=== PATIENT | female | born 1935 | race Caucasian/White ===

== ENCOUNTER → 2016-09-21 | Outpatient (CLI) | payer MEDICARE, OTHER ==
[~2016-09-21] MED LIST: ALPR0.5T8 PO; ASPI81TA84 PO; ATOR10TA64 PO; CALC600T12 PO; CHOL100018 PO; LACT1CAP58 PO; LEVO50TA4 PO; LISI1TAB11 PO; LUTE10TA2 PO; METO25TA27 PO; MULT-933 PO; OMEP40CA11 PO; ONDA4TAB7 PO; [UNRECOGNIZED DRUG - OTHER] PO
== END ==
LOC: WC.BC 11:05
DX: Z12.31 Encounter for screening mammogram for malignant neoplasm of breast (principal); Z80.3 Family history of malignant neoplasm of breast
CPT/HCPCS: 77063; G0202